=== PATIENT | female | born 1985 | race Caucasian/White ===

== ENCOUNTER → 2020-07-22 | Outpatient (CLI) | payer MEDICARE ==
[2020-07-22 08:33] LABS: HEMOGLOBIN 14.9 gm/dl (12.3-15.3); RED BLOOD COUNT 5.14 M/UL (4.00-5.10); WHITE BLOOD COUNT 13.6 K/UL (4.5-11.0)
[2020-07-22 09:43] LABS: BUN/CREATININE RATIO 16 (0-10)
== END ==
LOC: LAB 08:07
PROVIDERS: Registered Nurse Administrator
DX: F20.9 Schizophrenia, unspecified (principal); Z79.899 Other long term (current) drug therapy
CPT/HCPCS: 36415; 80053; 80061; 83036; 85025